=== PATIENT | female | born 1955 | race Caucasian/White ===

== ENCOUNTER → 2016-04-23 | Outpatient (CLI) | payer MEDICAID ==
[~2016-04-23] MED LIST: BELLADONNA; CELEXA 20MG20 MG/TAB PO; DIAZEPAM PO; DILAUDID 2MG TAB2 MG PO; DILAUDID 4MG TAB4 MG PO; FLEXERIL10 MG PO; GI COCKTAIL; HYDROCODONE/APAP; LEVOTHYROXINE PO; LORTAB 10/500 51 TAB PO; LORTAB 7.5/5001 TAB; MOBIC 7.5MG7.5 MG; NEXIUM 20MG CAP20 MG PO; PAXIL PO; PHENERGAN25 M1 PO; PHENOBARB; VALIUM 2MG T2 MG/TAB PO; ZOCOR 20MG20 MG PO; ZYRTEC 10MG
== END ==
LOC: COL.RAD 03-21 10:25
DX: E03.8 Other specified hypothyroidism (principal)
CPT/HCPCS: A9541

== ENCOUNTER → 2016-05-30 | Outpatient (REF) ==
[2016-05-30 16:26] LABS: THYROID STIMULATING HORMONE < 0.015 uIU/mL (0.465-4.680)
== END ==
LOC: ZLAB.WCH 15:01
PROVIDERS: Nurse Practitioner Family
DX: Z01.89 Encounter for other specified special examinations (principal)

== ENCOUNTER → 2017-08-05 | Outpatient (CLI) | payer MEDICARE, MEDICAID | LOC: COL.RAD 09:00 | DX: M41.86 Other forms of scoliosis, lumbar region (principal); M47.27 Other spondylosis with radiculopathy, lumbosacral region ==

== ENCOUNTER 2017-09-30 10:45 | Outpatient (RCR) | payer MEDICARE, MEDICAID | END 2017-10-01 10:19 | disposition home or self-care (01) | LOC: WSPT 10:45 | DX: M54.5 Low back pain (principal); G89.29 Other chronic pain | CPT/HCPCS: G0283-GP; G8978-GP; G8979-GP; G8980-GP ==

== ENCOUNTER → 2017-11-14 | Outpatient (REF) | LOC: ZLAB.WCH 16:12 | DX: Z01.89 Encounter for other specified special examinations (principal) ==

== ENCOUNTER 2018-04-24 08:17 | Day surgery (SDC) | payer MEDICARE, MEDICAID ==
[~2018-04-24] VITALS: Ht 160 cm; Wt 90.2 kg
[2018-04-24 08:46] VITALS: BP 134/95; PULSE 86; TEMP 97.8
[2018-04-24] MEDS ORDERED: MOBIC15 MG PO (08:58)
[2018-04-24] MEDS ORDERED: DILAUDID 4MG TAB4 MG PO (09:02)
[2018-04-24] MEDS ORDERED: WELLBUTRIN XL300 M1 PO (09:03)
[2018-04-24] MEDS ORDERED: ZOCOR 20MG20 MG PO (09:03)
[2018-04-24] MEDS ORDERED: BENTYL 20MG20 MG/TAB PO (09:04)
[2018-04-24] MEDS ORDERED: TAPAZOLE5 MG PO (09:05)
[2018-04-24] MEDS ORDERED: PHENERGAN 25 TA25 MG PO (09:06)
[2018-04-24] MEDS ORDERED: FLEXERIL 1010 MG/TAB PO (09:07)
[2018-04-24] MEDS ORDERED: FLONASEALLERGY NS (09:08)
[2018-04-24] MEDS ORDERED: ZYRTEC 10MG10 MG PO (09:09)
[2018-04-24 10:35] VITALS: BP 156/100; PULSE 83; TEMP 97.6
--- NOTE | 2018-04-24 10:35 | NUR ---
Pt returns from endo procedure via cart. Pt ambulates from cart to recliner with RN assist. Monitors on and alarms set. Call light within reach. Report received from JESSIE Colvin. Pt requests water and crackers. Pt denies nausea and reports pain as pre-op in her "stomach." No other complaints mentioned. No family present.
[2018-04-24 10:39] VITALS: BP 155/96; PULSE 82
--- NOTE | 2018-04-24 10:50 | NUR ---
Pt taking food and drink well. Pt states she's cold, and warm blankets are given.
[2018-04-24 11:00] VITALS: BP 145/97; PULSE 79
[2018-04-24 11:15] VITALS: BP 148/108; PULSE 81
--- NOTE | 2018-04-24 11:15 | NUR ---
Discharge instructions given to patient. All questions answered to her satisfaction. Handed to her are discharge instructions, diagnosis information, and a discharge med sheet.
--- NOTE | 2018-04-24 11:35 | NUR ---
Pt transferred out of hospital via wheelchair and JESSIE Peraza assist, to private vehicle driven by pt's family member.
[2018-04-24 12:38] VITALS: BP 147/81; PULSE 81
== END 2018-04-24 11:35 | disposition home or self-care (01) ==
LOC: SDCO 08:17
DX: D12.8 Benign neoplasm of rectum (principal); K57.30 Diverticulosis of large intestine without perforation or abscess without bleeding; K58.9 Irritable bowel syndrome, unspecified; J44.9 Chronic obstructive pulmonary disease, unspecified; E03.9 Hypothyroidism, unspecified; Z79.899 Other long term (current) drug therapy; E78.5 Hyperlipidemia, unspecified; F17.210 Nicotine dependence, cigarettes, uncomplicated; M79.604 Pain in right leg; F32.9 Major depressive disorder, single episode, unspecified; G43.909 Migraine, unspecified, not intractable, without status migrainosus; K21.9 Gastro-esophageal reflux disease without esophagitis; K63.5 Polyp of colon
CPT/HCPCS: J2704; J7030